=== PATIENT | male | born 1995 | race Hispanic/Latino ===

== ENCOUNTER 2016-09-22 12:32 | Emergency (ER) | payer OTHER ==
[~2016-09-22] VITALS: Ht 175.3 cm; Wt 81.2 kg
[2016-09-22 12:33] VITALS: BP 131/60
[2016-09-22] MEDS ORDERED: NAPR-855 PO (12:45)
[2016-09-22] MEDS ORDERED: methylPREDNISolone INJ 125 MG/2 ML VIAL (J2930) IM ONE (13:15)
[2016-09-22] MEDS ORDERED: diphenhydrAMINE 25 MG CAP PO ONE (13:15)
[2016-09-22] MEDS ORDERED: PRED20TA PO (13:30)
[2016-09-22] MEDS ORDERED: NAPHSOL OU (13:30)
== END 2016-09-22 13:47 | disposition home or self-care (01) ==
LOC: M ED 13:36
DX: H10.13 Acute atopic conjunctivitis, bilateral (principal); J30.9 Allergic rhinitis, unspecified; F17.200 Nicotine dependence, unspecified, uncomplicated
CPT/HCPCS: 96372; 99282; J2930